=== PATIENT | female | born 1970 | race Caucasian/White ===

== ENCOUNTER 2020-08-22 13:26 | Observation (INO) ==
[2020-08-22 14:32] LABS: Basophils # 0.1 K/mcL (0.0-0.2); Basophils % 0.5 %; Eosinophils # 0.5 K/mcL (0.0-0.6); Eosinophils % 3.3 %; Hematocrit 41.8 % (35.3-44.9); Hemoglobin 13.2 g/dL (11.5-15.4); Immature Granulocytes % 0.5 % (0-4); Lymphocytes # 3.3 K/mcL (0.6-4.6); Lymphocytes % 23.5 %; Mean Corpuscular HGB Conc 31.6 g/dL (31.6-35.5); Mean Corpuscular Hemoglobin 25.8 pg (28.0-33.3); Mean Corpuscular Volume 81.8 fL (83.0-100.0); Mean Platelet Volume 9.5 fL (9.4-12.4); Monocytes # 0.9 K/mcL (0.0-1.3); Monocytes % 6.4 %; Neutrophils # 9.2 K/mcL (1.6-8.9); Platelet Count 502 K/mcL (140-400); Red Blood Count 5.11 M/mcL (3.82-4.97); Red Cell Distribution Width 15.6 % (11.5-14.5); Segmented Neutrophils % 65.8 %
[2020-08-22 15:01] LABS: Troponin I 0.49 ng/mL (< 0.04)
[2020-08-22] MEDS ORDERED: Isovue-370 500 ML BOTTLE IVP ONE (15:40)
[2020-08-22 15:48] LABS: BUN/Creatinine Ratio 13 (6-26); Blood Urea Nitrogen 10 mg/dL (6-20); Calcium 8.8 mg/dL (8.6-10.3); Carbon Dioxide 23 mEq/L (23-29); Chloride 105 mEq/L (98-107); Glucose 102 mg/dL (70-105); Osmolality,Calculated 287 (280-300); Sodium 139 mEq/L (136-145); eGFR For African Americans > 60 (> 60); eGFR For Non-African Americans > 60 (> 60)
[2020-08-22] MEDS ORDERED: *HR* Heparin 5,000 UNIT/ML VIAL IVP PRN ×2 (16:24)
[2020-08-22] MEDS ORDERED: Aspirin 81 MG TAB.CHEW PO STA (16:24)
[2020-08-22] MEDS ORDERED: *HR* Heparin 5,000 UNIT/ML VIAL IVP ONE (16:24)
[2020-08-22] MEDS ORDERED: Ondansetron ODT 4 MG TAB.RAPDIS SL PRN (17:12)
[2020-08-22] MEDS ORDERED: Naloxone 0.4 MG/ML INJ IVP PRN (17:12)
[2020-08-22] MEDS ORDERED: Melatonin 3 MG TABLET PO PRN (17:12)
[2020-08-22] MEDS ORDERED: Perflutren Lipid Microsphere 1.3 ML in 0.9 % Sodium Chloride 8.7 ML IVP PRN ×2 (17:14→17:35)
[2020-08-22] MEDS: Heparin 25,000UNIT/250ML 1/2NS 25,000 UNIT/250 ML IV.SOLN IVC SCH (17:22)
[2020-08-22 17:27] LABS: Heparin anti-factor XA UFH < 0.04 IU/mL (0.30-0.70); INR 1.1; Prothrombin Time 12.7 Seconds (9.4-12.1)
[2020-08-22] MEDS ORDERED: *HR* LORazepam 2 MG/ML VIAL IVP PRN (18:40)
[2020-08-22] MEDS ORDERED: Azithromycin 500 MG in 0.9 % Sodium Chloride 250 ML IVPB SCH (19:00)
[2020-08-22 19:16] LABS: Estimated Average Glucose 126 mg/dl
[2020-08-22 20:01] LABS: Troponin I 0.53 ng/mL (< 0.04)
[2020-08-23 00:28] LABS: Basophils # 0.1 K/mcL (0.0-0.2); Basophils % 0.7 %; Eosinophils # 0.8 K/mcL (0.0-0.6); Eosinophils % 5.6 %; Hematocrit 39.2 % (35.3-44.9); Hemoglobin 11.9 g/dL (11.5-15.4); Immature Granulocytes % 0.5 % (0-4); Lymphocytes # 4.7 K/mcL (0.6-4.6); Lymphocytes % 32.8 %; Mean Corpuscular HGB Conc 30.4 g/dL (31.6-35.5); Mean Corpuscular Hemoglobin 25.2 pg (28.0-33.3); Mean Corpuscular Volume 82.9 fL (83.0-100.0); Mean Platelet Volume 9.4 fL (9.4-12.4); Monocytes # 0.9 K/mcL (0.0-1.3); Monocytes % 6.2 %; Neutrophils # 7.7 K/mcL (1.6-8.9); Platelet Count 469 K/mcL (140-400); Red Blood Count 4.73 M/mcL (3.82-4.97); Red Cell Distribution Width 15.7 % (11.5-14.5); Segmented Neutrophils % 54.2 %; White Blood Count 14.2 K/mcL (4.3-11.1)
[2020-08-23 00:45] LABS: BUN/Creatinine Ratio 14 (6-26); Blood Urea Nitrogen 10 mg/dL (6-20); Calcium 8.5 mg/dL (8.6-10.3); Carbon Dioxide 23 mEq/L (23-29); Chloride 104 mEq/L (98-107); Chol/HDL Ratio 4.8 (0-4.9); Cholesterol 167 mg/dL (< 200); Glucose 93 mg/dL (70-105); HDL Cholesterol 35 mg/dL (40-59); LDL Cholesterol,Calculated 87 mg/dL (< 100); Osmolality,Calculated 281 (280-300); Potassium 3.8 mEq/L (3.5-5.1); Sodium 136 mEq/L (136-145); Triglycerides 223 mg/dL (< 150); eGFR For African Americans > 60 (> 60); eGFR For Non-African Americans > 60 (> 60)
[2020-08-23 01:07] LABS: Platelet Estimate Normal (Normal); Reactive Lymphocytes Present (Not Present)
[2020-08-23] MEDS ORDERED: Regadenoson 0.4 MG/5 ML SYRINGE IVP ONE (06:18)
[2020-08-23] MEDS: Heparin 25,000UNIT/250ML 1/2NS 25,000 UNIT/250 ML IV.SOLN IVC SCH (08:10)
[2020-08-23] MEDS ORDERED: Aspirin 81 MG TAB.CHEW PO SCH (09:00)
[2020-08-23] MEDS ORDERED: cefTRIAXone 1,000 MG in Water for inj. (sterile) 10 ML IVP SCH (09:00)
[2020-08-23] MEDS ORDERED: 0.9 % Sodium Chloride 2,000 ML ONE (12:06)
[2020-08-23] MEDS ORDERED: Nitroglycerin 1,000 MCG/5 ML VIAL IV ONE (12:06)
[2020-08-23] MEDS ORDERED: *HR* Heparin 10,000 UNIT/10 ML VIAL ONE (12:06)
[2020-08-23] MEDS ORDERED: Heparin 1,000 UNITS/500 mL 500 ML ONE (12:06)
[2020-08-23] MEDS ORDERED: ISOVUE-370 200 ML INFUS..BTL ONE (12:06)
[2020-08-23] MEDS ORDERED: *HR* Midazolam HCl 2 MG/2 ML VIAL ONE (12:39)
[2020-08-23] MEDS ORDERED: *HR* FentaNYL (PF) 100 MCG/2 ML VIAL ONE (12:39)
[2020-08-23] MEDS ORDERED: lisinopriL 5 MG TABLET PO SCH (13:45)
[2020-08-23 16:35] VITALS: BP 119/67
[2020-08-23] MEDS ORDERED: carvediloL 6.25 MG TABLET PO SCH (17:00)
== END 2020-08-23 17:45 | disposition home or self-care (01) ==
LOC: 2NENU 13:26 → EMEROOARM 13:26 → SUATTDRO 17:48 → 2NENU 18:30
PROVIDERS: ADMIT Internal Medicine; ATTEND Student in an Organized Health Care Education/Training Program

== ENCOUNTER 2020-12-29 14:26 | Inpatient (IN) ==
[2020-12-29] MEDS ORDERED: Ondansetron 4 MG/2 ML VIAL IVP ONE ×2 (16:07→21:31)
[2020-12-29] MEDS ORDERED: *HR* FentaNYL (PF) 100 MCG/2 ML VIAL IVP STA (16:07)
[2020-12-29 16:27] LABS: Basophils % 0.3 %; Eosinophils # 0.1 K/mcL (0.0-0.6); Eosinophils % 0.9 %; Hematocrit 44.2 % (35.3-44.9); Immature Granulocytes % 0.7 % (0-4); Lymphocytes # 1.4 K/mcL (0.6-4.6); Lymphocytes % 9.7 %; Mean Corpuscular HGB Conc 29.4 g/dL (31.6-35.5); Mean Corpuscular Hemoglobin 23.3 pg (28.0-33.3); Mean Corpuscular Volume 79.4 fL (83.0-100.0); Mean Platelet Volume 9.9 fL (9.4-12.4); Platelet Count 594 K/mcL (140-400); Red Blood Count 5.57 M/mcL (3.82-4.97); Red Cell Distribution Width 16.6 % (11.5-14.5); Segmented Neutrophils % 81.4 %; White Blood Count 14.8 K/mcL (4.3-11.1)
[2020-12-29 16:35] LABS: BUN/Creatinine Ratio 14 (6-26); Blood Urea Nitrogen 10 mg/dL (6-20); Carbon Dioxide 37 mEq/L (23-29); Chloride 95 mEq/L (98-107); Glucose 123 mg/dL (70-105); Osmolality,Calculated 288 (280-300); Potassium 3.5 mEq/L (3.5-5.1); Sodium 139 mEq/L (136-145); eGFR For African Americans > 60 (> 60); eGFR For Non-African Americans > 60 (> 60)
[2020-12-29 16:45] LABS: Troponin I 0.05 ng/mL (< 0.04)
[2020-12-29] MEDS ORDERED: Naloxone 0.4 MG/ML INJ IVP PRN ×2 (17:41→20:50)
[2020-12-29] MEDS ORDERED: Fluticasone Propionate Nasal 50 MCG/SPRAY BOTTLE NS PRN (17:43)
[2020-12-29 18:48] LABS: Alanine Aminotransferase 37 Units/L (7-52); Albumin 3.3 g/dL (3.5-5.7); Albumin/Globulin Ratio 0.9 (1.1-2.2); Alkaline Phosphatase 73 Units/L (34-104); Aspartate Amino Transferase 21 Units/L (13-39); Bilirubin,Direct 0.4 mg/dL (0.0-0.2); Bilirubin,Indirect 0.6 mg/dL (0.0-1.0); Globulin 3.5 g/dL (2.4-3.5); Total Protein 6.8 g/dL (6.4-8.9)
[2020-12-29] MEDS ORDERED: Azithromycin 500 MG in 0.9 % Sodium Chloride 250 ML IVPB SCH (21:00)
[2020-12-29] MEDS ORDERED: cefTRIAXone 2,000 MG in Water for inj. (sterile) 20 ML IVP SCH (21:00)
[2020-12-29] MEDS: *HR* Heparin 5,000 UNIT/ML VIAL SQ SCH (23:42)
[2020-12-30 01:56] LABS: Basophils % 0.2 %; Eosinophils # 0.1 K/mcL (0.0-0.6); Eosinophils % 0.4 %; Hematocrit 42.1 % (35.3-44.9); Hemoglobin 12.5 g/dL (11.5-15.4); Immature Granulocytes % 0.6 % (0-4); Lymphocytes # 1.5 K/mcL (0.6-4.6); Lymphocytes % 9.1 %; Mean Corpuscular HGB Conc 29.7 g/dL (31.6-35.5); Mean Corpuscular Hemoglobin 23.3 pg (28.0-33.3); Mean Corpuscular Volume 78.5 fL (83.0-100.0); Mean Platelet Volume 9.8 fL (9.4-12.4); Monocytes # 1.1 K/mcL (0.0-1.3); Monocytes % 6.9 %; Neutrophils # 13.4 K/mcL (1.6-8.9); Platelet Count 555 K/mcL (140-400); Red Blood Count 5.36 M/mcL (3.82-4.97); Red Cell Distribution Width 16.7 % (11.5-14.5); Segmented Neutrophils % 82.8 %; White Blood Count 16.2 K/mcL (4.3-11.1)
[2020-12-30 02:02] LABS: BUN/Creatinine Ratio 17 (6-26); Blood Urea Nitrogen 12 mg/dL (6-20); Calcium 8.8 mg/dL (8.6-10.3); Carbon Dioxide 33 mEq/L (23-29); Chloride 96 mEq/L (98-107); Glucose 127 mg/dL (70-105); Osmolality,Calculated 287 (280-300); Potassium 3.4 mEq/L (3.5-5.1); Sodium 138 mEq/L (136-145); eGFR For African Americans > 60 (> 60); eGFR For Non-African Americans > 60 (> 60)
[2020-12-30] MEDS ORDERED: Vancomycin 2,000 MG/520 ML IV.SOLN IVPB ONE (06:00)
[2020-12-30 08:32] LABS: INR 1.2; Prothrombin Time 13.1 Seconds (9.4-12.1)
[2020-12-30] MEDS ORDERED: Lisinopril-HCTZ 20-12.5mg TABLET PO SCH (09:00)
[2020-12-30] MEDS: Cholecalciferol (D-3) 1,000 UNIT (25MCG) TABLET PO SCH (09:14)
[2020-12-30] MEDS: amLODIPine 5 MG TABLET PO SCH (09:14)
[2020-12-30] MEDS: Furosemide 40 MG/4 ML VIAL IVP SCH (09:15)
[2020-12-30] MEDS: Aspirin 81 MG TAB.CHEW PO SCH (09:15)
[2020-12-30] MEDS: *HR* Heparin 5,000 UNIT/ML VIAL SQ SCH ×2 (09:16→18:14)
[2020-12-30] MEDS: Cefepime HCl 2,000 MG in Water for inj. (sterile) 20 ML IVP SCH ×2 (09:17→17:03)
[2020-12-30] MEDS: Spironolactone 25 MG TABLET PO SCH (09:17)
[2020-12-30] MEDS: Pantoprazole 40 MG VIAL IVP SCH ×2 (10:20→17:04)
[2020-12-30] MEDS: Ketorolac 30 MG/ML VIAL IVP PRN (10:21)
[2020-12-30] MEDS: hydrOXYzine pamoate 25 MG CAPSULE PO PRN (10:40)
[2020-12-30] MEDS ORDERED: Albumin 25% 25gram/100mL 25 GM/100 ML IV.SOLN IVPB ONE (12:12)
[2020-12-30 13:47] LABS: Total Protein,Peritoneal Fluid 4.3 g/dL
[2020-12-30 13:51] LABS: RBC,Peritoneal Fluid 2000 RBC/mcL
[2020-12-30 14:15] LABS: Basophils,Peritoneal Fluid 0 %; Eosinophils,Peritoneal Fluid 0 %
[2020-12-30 14:16] LABS: Appearance of Peritoneal Fl CLEAR (Clear)
[2020-12-30] MEDS: Vancomycin 1,500 MG/265 ML IV.SOLN IVPB SCH (17:04)
[2020-12-30 19:47] LABS: RBC,Pleural Fluid 14000 RBC/mcL
[2020-12-30 20:32] LABS: Amylase,Pleural Fluid 12 Units/L (No Ref Range); Glucose,Pleural Fluid < 10 mg/dL (No Ref Range); LDH,Pleural Fluid > 1200 Units/L (No Ref Range); Total Protein,Pleural Fluid 4.5 g/dL
[2020-12-30 20:46] LABS: Basophils,Pleural Fluid 0 %; Eosinophils,Pleural Fluid 0 %
[2020-12-30 20:47] LABS: Appearance of Pleural Fl Clear (Clear)
[2020-12-31] MEDS: *HR* Heparin 5,000 UNIT/ML VIAL SQ SCH ×3 (00:42→18:06)
[2020-12-31] MEDS: Cefepime HCl 2,000 MG in Water for inj. (sterile) 20 ML IVP SCH ×3 (00:47→18:05)
[2020-12-31] MEDS: MetroNIDAZOLE 500 MG/100 ML 500 MG/100 ML BAG IVPB SCH ×3 (00:48→18:06)
[2020-12-31 00:50] LABS: Basophils % 0.3 %; Eosinophils # 0.2 K/mcL (0.0-0.6); Eosinophils % 1.5 %; Hematocrit 34.6 % (35.3-44.9); Hemoglobin 10.5 g/dL (11.5-15.4); Immature Granulocytes % 0.7 % (0-4); Lymphocytes # 1.6 K/mcL (0.6-4.6); Lymphocytes % 13.1 %; Mean Corpuscular HGB Conc 30.3 g/dL (31.6-35.5); Mean Corpuscular Hemoglobin 24.1 pg (28.0-33.3); Mean Corpuscular Volume 79.4 fL (83.0-100.0); Mean Platelet Volume 9.8 fL (9.4-12.4); Monocytes # 1.1 K/mcL (0.0-1.3); Monocytes % 8.6 %; Neutrophils # 9.3 K/mcL (1.6-8.9); Platelet Count 454 K/mcL (140-400); Red Blood Count 4.36 M/mcL (3.82-4.97); Red Cell Distribution Width 16.9 % (11.5-14.5); Segmented Neutrophils % 75.8 %; White Blood Count 12.3 K/mcL (4.3-11.1)
[2020-12-31 01:06] LABS: Calcium 8.2 mg/dL (8.6-10.3); Potassium 3.1 mEq/L (3.5-5.1)
[2020-12-31] MEDS: Vancomycin 1,500 MG/265 ML IV.SOLN IVPB SCH (05:27)
[2020-12-31] MEDS: Pantoprazole 40 MG VIAL IVP SCH ×2 (05:27→18:06)
[2020-12-31] MEDS: Ketorolac 30 MG/ML VIAL IVP PRN ×2 (05:38→18:05)
[2020-12-31] MEDS: Furosemide 40 MG/4 ML VIAL IVP SCH (10:08)
[2020-12-31] MEDS: Aspirin 81 MG TAB.CHEW PO SCH (10:09)
[2020-12-31] MEDS: amLODIPine 5 MG TABLET PO SCH (10:09)
[2020-12-31] MEDS: Cholecalciferol (D-3) 1,000 UNIT (25MCG) TABLET PO SCH (10:09)
[2020-12-31] MEDS: Spironolactone 25 MG TABLET PO SCH (10:09)
[2020-12-31] MEDS: Ondansetron 4 MG/2 ML VIAL IVP PRN ×2 (13:13→21:12)
[2021-01-01] MEDS: *HR* Heparin 5,000 UNIT/ML VIAL SQ SCH ×4 (00:16→23:29)
[2021-01-01] MEDS: Cefepime HCl 2,000 MG in Water for inj. (sterile) 20 ML IVP SCH ×4 (00:22→23:29)
[2021-01-01] MEDS: MetroNIDAZOLE 500 MG/100 ML 500 MG/100 ML BAG IVPB SCH ×4 (00:24→23:30)
[2021-01-01] MEDS: Ondansetron 4 MG/2 ML VIAL IVP PRN ×2 (02:55→12:13)
[2021-01-01 03:12] LABS: Basophils # 0.1 K/mcL (0.0-0.2); Basophils % 0.4 %; Eosinophils # 0.4 K/mcL (0.0-0.6); Eosinophils % 2.7 %; Hematocrit 34.5 % (35.3-44.9); Hemoglobin 10.1 g/dL (11.5-15.4); Immature Granulocytes % 0.8 % (0-4); Lymphocytes # 1.7 K/mcL (0.6-4.6); Lymphocytes % 12.8 %; Mean Corpuscular HGB Conc 29.3 g/dL (31.6-35.5); Mean Corpuscular Hemoglobin 22.9 pg (28.0-33.3); Mean Corpuscular Volume 78.2 fL (83.0-100.0); Mean Platelet Volume 9.4 fL (9.4-12.4); Monocytes # 1.3 K/mcL (0.0-1.3); Monocytes % 9.8 %; Neutrophils # 9.7 K/mcL (1.6-8.9); Platelet Count 435 K/mcL (140-400); Red Blood Count 4.41 M/mcL (3.82-4.97); Red Cell Distribution Width 16.9 % (11.5-14.5); Segmented Neutrophils % 73.5 %; White Blood Count 13.1 K/mcL (4.3-11.1)
[2021-01-01 03:28] LABS: Potassium 3.5 mEq/L (3.5-5.1)
[2021-01-01] MEDS: Pantoprazole 40 MG VIAL IVP SCH ×2 (05:19→17:28)
[2021-01-01] MEDS: amLODIPine 5 MG TABLET PO SCH (08:26)
[2021-01-01] MEDS: Spironolactone 25 MG TABLET PO SCH (08:36)
[2021-01-01] MEDS: Cholecalciferol (D-3) 1,000 UNIT (25MCG) TABLET PO SCH (08:36)
[2021-01-01] MEDS: Furosemide 40 MG/4 ML VIAL IVP SCH (08:36)
[2021-01-01] MEDS: Aspirin 81 MG TAB.CHEW PO SCH (08:36)
[2021-01-01] MEDS: Ketorolac 30 MG/ML VIAL IVP PRN (23:29)
[2021-01-01 23:35] LABS: Fluid Source for Albumin PERITONEAL FL
[2021-01-02] MEDS: Pantoprazole 40 MG VIAL IVP SCH ×2 (07:14→16:35)
[2021-01-02 08:43] LABS: Basophils % 0.3 %; Eosinophils # 0.4 K/mcL (0.0-0.6); Eosinophils % 3.1 %; Hematocrit 34.8 % (35.3-44.9); Hemoglobin 10.6 g/dL (11.5-15.4); Immature Granulocytes % 0.9 % (0-4); Lymphocytes # 1.3 K/mcL (0.6-4.6); Lymphocytes % 10.2 %; Mean Corpuscular HGB Conc 30.5 g/dL (31.6-35.5); Mean Corpuscular Hemoglobin 23.9 pg (28.0-33.3); Mean Corpuscular Volume 78.6 fL (83.0-100.0); Monocytes # 0.9 K/mcL (0.0-1.3); Monocytes % 7.4 %; Platelet Count 443 K/mcL (140-400); Red Blood Count 4.43 M/mcL (3.82-4.97); Red Cell Distribution Width 16.9 % (11.5-14.5); Segmented Neutrophils % 78.1 %; White Blood Count 12.8 K/mcL (4.3-11.1)
[2021-01-02 08:46] LABS: Calcium 8.4 mg/dL (8.6-10.3); Potassium 3.5 mEq/L (3.5-5.1)
[2021-01-02] MEDS: Ondansetron 4 MG/2 ML VIAL IVP PRN ×2 (09:20→16:31)
[2021-01-02] MEDS: Aspirin 81 MG TAB.CHEW PO SCH (09:30)
[2021-01-02] MEDS: *HR* Heparin 5,000 UNIT/ML VIAL SQ SCH ×2 (09:30→16:32)
[2021-01-02] MEDS: amLODIPine 5 MG TABLET PO SCH (09:30)
[2021-01-02] MEDS: hydrOXYzine pamoate 25 MG CAPSULE PO PRN ×2 (09:30→16:31)
[2021-01-02] MEDS: Cholecalciferol (D-3) 1,000 UNIT (25MCG) TABLET PO SCH (09:30)
[2021-01-02] MEDS: Cefepime HCl 2,000 MG in Water for inj. (sterile) 20 ML IVP SCH ×2 (09:31→16:33)
[2021-01-02] MEDS: Furosemide 40 MG/4 ML VIAL IVP SCH (09:31)
[2021-01-02] MEDS: Spironolactone 25 MG TABLET PO SCH (09:32)
[2021-01-02] MEDS: Ketorolac 30 MG/ML VIAL IVP PRN ×2 (09:37→16:32)
[2021-01-02] MEDS: MetroNIDAZOLE 500 MG/100 ML 500 MG/100 ML BAG IVPB SCH ×2 (09:43→16:36)
[2021-01-03] MEDS: Cefepime HCl 2,000 MG in Water for inj. (sterile) 20 ML IVP SCH ×4 (01:14→23:10)
[2021-01-03] MEDS: MetroNIDAZOLE 500 MG/100 ML 500 MG/100 ML BAG IVPB SCH ×4 (01:15→23:10)
[2021-01-03] MEDS: *HR* Heparin 5,000 UNIT/ML VIAL SQ SCH ×4 (01:15→23:09)
[2021-01-03] MEDS: Ondansetron 4 MG/2 ML VIAL IVP PRN ×2 (01:19→13:56)
[2021-01-03 03:13] LABS: Basophils # 0.1 K/mcL (0.0-0.2); Basophils % 0.5 %; Eosinophils # 0.6 K/mcL (0.0-0.6); Eosinophils % 4.8 %; Hematocrit 35.5 % (35.3-44.9); Hemoglobin 10.7 g/dL (11.5-15.4); Immature Granulocytes % 0.6 % (0-4); Lymphocytes # 1.3 K/mcL (0.6-4.6); Lymphocytes % 9.8 %; Mean Corpuscular HGB Conc 30.1 g/dL (31.6-35.5); Mean Corpuscular Hemoglobin 23.4 pg (28.0-33.3); Mean Corpuscular Volume 77.7 fL (83.0-100.0); Mean Platelet Volume 9.8 fL (9.4-12.4); Monocytes % 7.6 %; Neutrophils # 10.1 K/mcL (1.6-8.9); Platelet Count 448 K/mcL (140-400); Red Blood Count 4.57 M/mcL (3.82-4.97); Red Cell Distribution Width 17.2 % (11.5-14.5); Segmented Neutrophils % 76.7 %; White Blood Count 13.2 K/mcL (4.3-11.1)
[2021-01-03 03:34] LABS: Calcium 8.2 mg/dL (8.6-10.3); Potassium 3.3 mEq/L (3.5-5.1)
[2021-01-03] MEDS: Pantoprazole 40 MG VIAL IVP SCH (05:17)
[2021-01-03] MEDS: Furosemide 40 MG/4 ML VIAL IVP SCH (10:01)
[2021-01-03] MEDS: amLODIPine 5 MG TABLET PO SCH (10:01)
[2021-01-03] MEDS: Aspirin 81 MG TAB.CHEW PO SCH (10:02)
[2021-01-03] MEDS: Cholecalciferol (D-3) 1,000 UNIT (25MCG) TABLET PO SCH (10:02)
[2021-01-03] MEDS: Spironolactone 25 MG TABLET PO SCH (10:02)
[2021-01-03] MEDS: Prochlorperazine 10 MG/2 ML VIAL IVP PRN (19:59)
[2021-01-03] MEDS ORDERED: *HR* Promethazine 25 MG/ML VIAL IM ONE (21:02)
[2021-01-03] MEDS: Lactobacillus 1 EACH CAP.SPRINK PO SCH (23:11)
[2021-01-04 01:43] LABS: Basophils # 0.1 K/mcL (0.0-0.2); Basophils % 0.4 %; Eosinophils # 0.4 K/mcL (0.0-0.6); Eosinophils % 3.2 %; Hematocrit 36.6 % (35.3-44.9); Immature Granulocytes % 0.7 % (0-4); Lymphocytes # 1.7 K/mcL (0.6-4.6); Lymphocytes % 13.8 %; Mean Corpuscular HGB Conc 30.1 g/dL (31.6-35.5); Mean Corpuscular Hemoglobin 23.3 pg (28.0-33.3); Mean Corpuscular Volume 77.4 fL (83.0-100.0); Mean Platelet Volume 9.3 fL (9.4-12.4); Platelet Count 449 K/mcL (140-400); Red Blood Count 4.73 M/mcL (3.82-4.97); Red Cell Distribution Width 17.2 % (11.5-14.5); Segmented Neutrophils % 73.9 %; White Blood Count 12.2 K/mcL (4.3-11.1)
[2021-01-04 01:59] LABS: BUN/Creatinine Ratio 12 (6-26); Blood Urea Nitrogen 13 mg/dL (6-20); Carbon Dioxide 26 mEq/L (23-29); Chloride 100 mEq/L (98-107); Glucose 110 mg/dL (70-105); Osmolality,Calculated 281 (280-300); Potassium 3.7 mEq/L (3.5-5.1); Sodium 135 mEq/L (136-145); eGFR For African Americans > 60 (> 60); eGFR For Non-African Americans 51 (> 60)
[2021-01-04] MEDS: MetroNIDAZOLE 500 MG/100 ML 500 MG/100 ML BAG IVPB SCH ×2 (07:54→19:00)
[2021-01-04] MEDS: Spironolactone 25 MG TABLET PO SCH (08:09)
[2021-01-04] MEDS: Aspirin 81 MG TAB.CHEW PO SCH (08:10)
[2021-01-04] MEDS: amLODIPine 5 MG TABLET PO SCH (08:10)
[2021-01-04] MEDS: Cefepime HCl 2,000 MG in Water for inj. (sterile) 20 ML IVP SCH ×3 (08:10→23:20)
[2021-01-04] MEDS: Cholecalciferol (D-3) 1,000 UNIT (25MCG) TABLET PO SCH (08:10)
[2021-01-04] MEDS: Lactobacillus 1 EACH CAP.SPRINK PO SCH (08:10)
[2021-01-04] MEDS: Furosemide 40 MG/4 ML VIAL IVP SCH (08:10)
[2021-01-04] MEDS: *HR* Heparin 5,000 UNIT/ML VIAL SQ SCH ×3 (08:13→23:20)
[2021-01-04] MEDS ORDERED: Prochlorperazine 10 MG/2 ML VIAL IVP PRN (12:06)
[2021-01-04 19:52] LABS: Adenovirus Not Detected (Not Detect); Bordetella Pertussis Not Detected (Not Detect); Chlamydophila pneumoniae Not Detected (Not Detect); Coronavirus 229E Not Detected (Not Detect); Coronavirus HKU1 Not Detected (Not Detect); Coronavirus NL63 Not Detected (Not Detect); Coronavirus OC43 Not Detected (Not Detect); Human Metapneumovirus Not Detected (Not Detect); Human Rhinovirus/Enterovirus Not Detected (Not Detect); Influenza A Subtype 2009 H1 Not Detected (Not Detect); Influenza B Not Detected (Not Detect); Mycoplasma pneumoniae Not Detected (Not Detect); Parainfluenza Virus 1 Not Detected (Not Detect); Parainfluenza Virus 2 Not Detected (Not Detect); Parainfluenza Virus 3 Not Detected (Not Detect); Parainfluenza Virus 4 Not Detected (Not Detect); Respiratory Syncytial Virus Not Detected (Not Detect); SARS-CoV-2 Not Detected (Not Detect)
[2021-01-05 02:06] LABS: Basophils # 0.1 K/mcL (0.0-0.2); Basophils % 0.5 %; Eosinophils # 0.3 K/mcL (0.0-0.6); Eosinophils % 2.5 %; Hematocrit 37.2 % (35.3-44.9); Hemoglobin 11.2 g/dL (11.5-15.4); Immature Granulocytes % 0.8 % (0-4); Lymphocytes # 1.6 K/mcL (0.6-4.6); Lymphocytes % 12.9 %; Mean Corpuscular HGB Conc 30.1 g/dL (31.6-35.5); Mean Corpuscular Hemoglobin 23.2 pg (28.0-33.3); Mean Corpuscular Volume 77.2 fL (83.0-100.0); Mean Platelet Volume 9.3 fL (9.4-12.4); Neutrophils # 9.2 K/mcL (1.6-8.9); Platelet Count 446 K/mcL (140-400); Red Blood Count 4.82 M/mcL (3.82-4.97); Red Cell Distribution Width 17.7 % (11.5-14.5); Segmented Neutrophils % 75.3 %; White Blood Count 12.2 K/mcL (4.3-11.1)
[2021-01-05 02:12] LABS: INR 1.3; Prothrombin Time 14.7 Seconds (9.4-12.1)
[2021-01-05 02:14] LABS: Activated Partial Thrombo Time 30.2 Seconds (26.0-36.0)
[2021-01-05 02:29] LABS: BUN/Creatinine Ratio 12 (6-26); Blood Urea Nitrogen 12 mg/dL (6-20); Calcium 8.1 mg/dL (8.6-10.3); Carbon Dioxide 27 mEq/L (23-29); Chloride 100 mEq/L (98-107); Glucose 112 mg/dL (70-105); Osmolality,Calculated 283 (280-300); Potassium 3.8 mEq/L (3.5-5.1); Sodium 136 mEq/L (136-145); eGFR For African Americans > 60 (> 60); eGFR For Non-African Americans 57 (> 60)
[2021-01-05 04:27] LABS: HIV-1&2 Antibody & p24 Ag Nonreactive (Nonreactive)
[2021-01-05 04:28] LABS: Hepatitis B Core IgM Nonreactive (Nonreactive); Hepatitis C Virus Antibody Nonreactive (Nonreactive)
[2021-01-05] MEDS: Furosemide 40 MG/4 ML VIAL IVP SCH (09:28)
[2021-01-05] MEDS: Cefepime HCl 2,000 MG in Water for inj. (sterile) 20 ML IVP SCH ×2 (09:28→16:50)
[2021-01-05] MEDS: *HR* Heparin 5,000 UNIT/ML VIAL SQ SCH ×3 (09:28→23:18)
[2021-01-05] MEDS: Aspirin 81 MG TAB.CHEW PO SCH (09:29)
[2021-01-05] MEDS: Lactobacillus 1 EACH CAP.SPRINK PO SCH (09:29)
[2021-01-05] MEDS: Cholecalciferol (D-3) 1,000 UNIT (25MCG) TABLET PO SCH (09:29)
[2021-01-05] MEDS: Spironolactone 25 MG TABLET PO SCH (09:29)
[2021-01-05] MEDS: amLODIPine 5 MG TABLET PO SCH (09:29)
[2021-01-05 11:25] LABS: Alanine Aminotransferase 54 Units/L (7-52); Albumin 2.8 g/dL (3.5-5.7); Albumin/Globulin Ratio 0.9 (1.1-2.2); Alkaline Phosphatase 66 Units/L (34-104); Aspartate Amino Transferase 74 Units/L (13-39); Bilirubin,Direct 0.2 mg/dL (0.0-0.2); Bilirubin,Indirect 0.3 mg/dL (0.0-1.0); Bilirubin,Total 0.5 mg/dL (0.3-1.0); Globulin 3.2 g/dL (2.4-3.5); Lactate Dehydrogenase 422 Units/L (140-271)
[2021-01-05 11:35] LABS: Carcinoembryonic Antigen 5.4 ng/mL (Less than 5.0)
[2021-01-05] MEDS: Prochlorperazine 10 MG/2 ML VIAL IVP PRN (13:27)
[2021-01-05 14:29] LABS: Cancer Antigen 125 > 4500 U/mL (Less than 35)
[2021-01-06 02:28] LABS: Basophils # 0.1 K/mcL (0.0-0.2); Basophils % 0.6 %; Eosinophils # 0.3 K/mcL (0.0-0.6); Eosinophils % 2.2 %; Hematocrit 39.3 % (35.3-44.9); Hemoglobin 12.1 g/dL (11.5-15.4); Immature Granulocytes % 1.1 % (0-4); Lymphocytes # 1.7 K/mcL (0.6-4.6); Lymphocytes % 13.8 %; Mean Corpuscular HGB Conc 30.8 g/dL (31.6-35.5); Mean Corpuscular Hemoglobin 23.9 pg (28.0-33.3); Mean Corpuscular Volume 77.5 fL (83.0-100.0); Mean Platelet Volume 9.4 fL (9.4-12.4); Monocytes # 1.1 K/mcL (0.0-1.3); Monocytes % 8.6 %; Neutrophils # 9.1 K/mcL (1.6-8.9); Platelet Count 458 K/mcL (140-400); Red Blood Count 5.07 M/mcL (3.82-4.97); Red Cell Distribution Width 18.6 % (11.5-14.5); Segmented Neutrophils % 73.7 %; White Blood Count 12.4 K/mcL (4.3-11.1)
[2021-01-06 02:44] LABS: BUN/Creatinine Ratio 12 (6-26); Blood Urea Nitrogen 12 mg/dL (6-20); Calcium 8.4 mg/dL (8.6-10.3); Carbon Dioxide 30 mEq/L (23-29); Chloride 98 mEq/L (98-107); Glucose 110 mg/dL (70-105); Osmolality,Calculated 286 (280-300); Potassium 3.4 mEq/L (3.5-5.1); Sodium 138 mEq/L (136-145); eGFR For African Americans > 60 (> 60); eGFR For Non-African Americans 56 (> 60)
[2021-01-06] MEDS: Spironolactone 25 MG TABLET PO SCH (08:49)
[2021-01-06] MEDS: Lactobacillus 1 EACH CAP.SPRINK PO SCH (08:50)
[2021-01-06] MEDS: amLODIPine 5 MG TABLET PO SCH (08:50)
[2021-01-06] MEDS: Cholecalciferol (D-3) 1,000 UNIT (25MCG) TABLET PO SCH (08:50)
[2021-01-06] MEDS: *HR* Heparin 5,000 UNIT/ML VIAL SQ SCH ×2 (08:51→15:34)
[2021-01-06] MEDS ORDERED: Furosemide 40 MG TABLET PO SCH (09:00)
[2021-01-06 19:27] VITALS: BP 126/83; PULSE 100; TEMP 98.5; O2SAT 95
[2021-01-08 00:10] LABS: A.galactomannan Ag Index 0.04
[2021-01-14] MEDS ORDERED: Cyanocobalamin (B-12) 1,000 MCG/ML VIAL IM SCH (09:00)
== END 2021-01-06 21:50 | disposition short-term general hospital (02) | DRG 981 ==
LOC: 2ANU 14:26 → EMEROOARM 14:26 → SUATTDRO 17:43 → 2ANU 20:00
PROVIDERS: ADMIT Family Medicine; ATTEND Internal Medicine